=== PATIENT | male | born 1980 | race Caucasian/White ===

== ENCOUNTER 2017-02-03 02:45 | Observation (INO) | payer MEDICARE, OTHER ==
--- NOTE | 2017-02-03 03:32 | ERNOTE ---
Abdominal HPI - General Chief Complaint: Abdominal Pain Time Seen by Provider: 02/03/17 03:19 Source: patient Exam Limitations: no limitations - Immun/Allergies/Home Medications Immunizatons: IMMUNIZATION HX Immunizations Up to Date Yes History of Influenza Vaccine Yes Hx Pneumococcal Vaccination Yes Allergies/Adverse Reactions: Allergies fluoxetine HCl [From Prozac] Allergy (Severe, Verified 02/03/17 10:16) SUICIDAL THOUGHTS tramadol Allergy (Verified 02/03/17 10:16) Suicidal thoughts Home Medications: HOME MEDICATIONS Sertraline HCl [Zoloft] 200 mg PO DAILY #0 tablet 05/30/13 [Last Taken 05/18/14] - History of Present Illness Narrative: Pt states he has been having bloody diarrhea for about a week. This is similar to previous episodes of diverticulitis. 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 Modifying Factors - (Improves): Present: lying down Modifying Factors - (Worsens): Present: eating, movement Review of Systems - Review of Systems Constitutional: Present: recent illness, fever, chills EYE: Present: no symptoms reported ENT: Present: no symptoms reported Respiratory: Absent: shortness of breath, cough Cardiology: Absent: chest pain, palpitations Gastrointestinal/Abdominal: Present: See HPI, nausea, vomiting Genitourinary: Absent: frequency, pain Musculoskeletal: Present: back pain Skin: Present: no symptoms reported Neurological: Present: no symptoms reported Endocrine: Present: excessive sweating, flushing Hematologic/Lymphatic: Present: no symptoms reported Psych: Present: no symptoms reported - Patient's Past Medical History Patient History - Medical: Anxiety, Depression Patient History - Cardiac/Respiratory: No pertinent hx Patient History - Cancer: No Hx of Cancer Patient History - Surgical Procedures: Other Patient History - Other: None - Family History Brother Family History - Medical: History Unknown Family History - Cardiac/Respiratory: History Unknown Family History - Cancer: History Unknown - Social History Living Situations: home Abuse History: Hx of Substance Use Psych History: Hx of Anxiety, Hx of Depression Smoking Status: Never smoker Alcohol Use: none Drug Use: meth - Immunizations Immunizations Up to Date: Yes Hx Pneumococcal Vaccination: Yes History of Influenza Vaccine: Yes Physical Exam - Physical Exam General Appearance: Present: wd/wn, alert, moderate distress Ears, Nose, Throat: Present: normal ENT inspection Neck: Present: normal inspection, nontender, supple Respiratory: Present: no respiratory distress, normal breath sounds, lungs clear Cardiovascular/Chest: Present: regular rate, rhythm, no murmur Gastrointestinal/Abdominal: Present: no organomegaly, tenderness - LUQ, LLQ, guarding Rectal Exam: Present: nontender, normal rectal tone Back Exam: Present: normal inspection, normal range of motion Extremity Exam: Present: normal inspection, normal range of motion, no edema Neurological Exam: Present: alert, oriented Skin Exam: Present: normal color, warm/dry Lymphatic Exam: Present: no adenopathy ED Progress - Results and Orders Patient's Lab Results:: I have reviewed the patient's lab results. Results and Orders: Laboratory Tests 02/03/17 02/03/17 02/03/17 03:10 03:10 03:17 WBC 16.3 H Hgb 16.2 Hct 47.4 Plt Count 243 Neutrophils % 77.8 H Sodium 138 Potassium 3.9 Chloride 98 Carbon Dioxide 33.3 H Anion Gap 10.6 BUN 10 Creatinine 1.17 Est GFR (Non-Af Amer) 75 BUN/Creatinine Ratio 8.5 L Random Glucose 106 Calcium 9.0 Total Bilirubin 0.5 AST 22 ALT 37 Alkaline Phosphatase 97 Total Protein 7.8 Albumin 3.8 Amylase 44 Lipase 59 L Urine Color Dark yellow Urine Appearance Clear Urine pH 6.0 Ur Specific Moore >=1.030 Urine Protein 15 H Urine Glucose (UA) Negative Urine Ketones Negative Urine Blood Negative Urine Nitrate Negative Urine Bilirubin Negative Prot Sulfosalicylic Acd Negative Urine Urobilinogen Normal Ur Leukocyte Esterase Negative Urine RBC 0-5 Urine WBC 0-5 Ur Epithelial Cells 0-5 Amorphous Sediment Moderate - 2+ H Urine Bacteria None seen Urine Culture Comments No culture indicated - Vital Signs Patient's Vital Signs:: I have reviewed the patient's vital signs. Vital Signs: Vital Signs 02/03/17 02:50 Temperature 36.2 C L Pulse Rate 125 H Respiratory 18 Rate Blood Pressure 146/80 O2 Sat by Pulse 96 Oximetry - CT/Ultrasound CT/Ultrasound Narrative: CT abd/pelvis: diverticulitis at juct. of desc and sigmoid colon with adjacent stranding and mild fluid - Progress/Reassessment Chief Complaint: Abdominal Pain Progress:: Unchanged Progress Note-Subjective: 02/03/17 04:37 Pt complains of abdominal pain, pain not controlled by first dose of morphine Departure - Departure Clinical Impression: Diverticula of colon Qualifiers: Diverticulosis bleeding: diverticulosis with bleeding Qualified Code(s): K57.31 - Diverticulosis of large intestine without perforation or abscess with bleeding Disposition: [facility] Condition: Fair
--- OUTSIDE RECORDS SUMMARY | 2017-02-03 03:33 | XMS REPORT | Continuity of Care Document ---
:1980 Author Organization [employer] [place] [address] Care Team Providers Name Role Phone Unavailable Primary Care Provider Unavailable Source Comments This disclosure is being made pursuant to the [employer] program and maynot contain all information available regarding this patient.[employer] Active Allergies and Adverse Reactions Allergen Noted Date Severity Reactions Comments Prozac 02/07/2015 Other (See Comments) Reaction Unknown Tramadol 02/07/2015 Other (See Comments) Reaction Unknown Current Medications Be aware that medications may not be up to date as of this document. Alwaysverify current medications with the patient. Prescription Sig. Disp. Refills Start Date End Date Status sertraline (ZOLOFT) 100 Take 1 tablet by 60 tablet 1 08/08/2015 Active MG tablet mouth 2 (two) times daily. Active Problems Problem Noted Date HTN (hypertension) 01/04/2015 Right shoulder pain 10/25/2014 Joint pain 08/11/2014 Overview: Left Sacroilliac Lumbago 06/05/2014 Social History Tobacco Use Types Packs/Day Years Used Date Never Smoker Alcohol Use Drinks/Week oz/Week Comments No Last Filed Vital Signs Vital Sign Reading Time Taken Blood Pressure 152/85 07/22/2016 6:31 PM [employer] Pulse 110 07/22/2016 6:31 PM [employer] Temperature 36.4 C (97.5 F) 07/22/2016 7:26 PM [employer] Respiratory Rate 18 07/22/2016 6:31 PM [employer] Height 1.829 m (6') 07/22/2016 6:31 PM [employer] Weight 117.028 kg (258 lb) 07/22/2016 6:31 PM [employer] Body Mass Index 34.98 07/22/2016 6:31 PM [employer] Oxygen Saturation 97% 07/22/2016 6:31 PM [employer] Plan of Care Health Maintenance Due Date Last Done Comments Tetanus/Pertussis (1 - Tdap) 1998 Influenza Immunization (#1) 2016 Results from Last 3 Months Not on file Insurance Payer Benefit Plan / Subscriber ID Type Phone Address Group MEDICARE MEDICARE A AND B [id number] [id number] [address] [place] [address] [facility] [id number] Managed [phone] [address] MEDICAID [place], [place] [id number] [id number] BERNARDA WALKER [id number] [address] [place] Personal/Family Self 1980 Home: [address] [place] [address] [phone] BERNARDA WALKER [id number]
[2017-02-03 03:34] LABS: Hematocrit 47.4 % (42.0-52.0); Hemoglobin 16.2 gm/dL (13.5-18.0); Mean Corpuscular Hemoglobin 27.7 pg (27-31); Mean Corpuscular Hgb Conc 34.2 g/dl (32-36); Mean Platelet Volume 10.1 fl (6.0-9.5); Neutrophil # 12.7 K/mm3 (1.3-6.0); Neutrophil % 77.8 % (42-75.0); Platelet Count 243 K/mm3 (150-450); Red Blood Count 5.85 M/mm3 (4.7-6.0); Red Cell Distribution Width 12.8 % (11.5-14.0); White Blood Count 16.3 K/mm3 (4.0-10.5)
[2017-02-03 03:35] LABS: Urine Bilirubin Negative (NEGATIVE); Urine Blood Negative /ul (NEGATIVE); Urine Ketone Negative (NEGATIVE); Urine Nitrite Negative (NEGATIVE); Urine Protein 15 mg/dL (NEGATIVE); Urine Specific Gravity >=1.030 SP.GR. (1.005-1.030); Urine Urobilinogen Normal (NORMAL)
[2017-02-03 03:43] LABS: Urine Amorphous Sediment Moderate - 2+ (NONE-FEW); Urine Appearance Clear; Urine Bacteria None Seen; Urine Color Dark Yellow; Urine RBC 0-5 /hpf (0-5); Urine WBC 0-5 /hpf (0-5)
[2017-02-03 03:46] LABS: Albumin * 3.8 gm/dl (3.4-5.0); Anion Gap 10.6 mmol/L (6.8-13.8); BUN/Creatinine Ratio 8.5 (9.0-21.6); Bilirubin, Total 0.5 mg/dL (0.0-1.1); Ca. Corrected For Albumin 8.8 mg/dL (8.4-10.2); Carbon Dioxide 33.3 mmol/L (24-32.6); Potassium 3.9 mmol/L (3.4-4.6); Total Protein 7.8 gm/dL (6.2-8.2)
[2017-02-03] MEDS ORDERED: ONDANSETRON HCL/PF 2 MG/ML VIAL IV ONE ×2 (03:56→06:48)
[2017-02-03] MEDS ORDERED: MORPHINE SULFATE 2 MG/ML DISP.SYRIN IV ONE ×2 (03:56→04:36)
[2017-02-03] MEDS ORDERED: MORPHINE SULFATE 2 MG/ML DISP.SYRIN ONE (03:57)
[2017-02-03] MEDS ORDERED: ONDANSETRON HCL/PF 2 MG/ML VIAL ONE ×2 (03:58→06:49)
[2017-02-03] MEDS ORDERED: DIATRIZOATE MEGLU/DIATRIZO SOD 30 ML BTL ONE (04:01)
[2017-02-03] MEDS ORDERED: DIATRIZOATE MEGLU/DIATRIZO SOD 30 ML BTL PO ONE (04:02)
[2017-02-03] MEDS ORDERED: MORPHINE SULFATE 4 MG/ML SYRG ONE (04:37)
[2017-02-03] MEDS ORDERED: HYDROmorphone HCL 1 MG/ML DISP.SYRIN ONE ×2 (06:04→06:49)
[2017-02-03] MEDS ORDERED: HYDROmorphone HCL 1 MG/ML DISP.SYRIN IV ONE ×2 (06:07→06:47)
--- OUTSIDE RECORDS SUMMARY | 2017-02-03 06:47 | XMS REPORT | Continuity of Care Document ---
:1980 Author Organization [employer] Address [place] [address] Care Team Providers Name Role Phone Unavailable Primary Care Provider Unavailable Source Comments This disclosure is being made pursuant to the [employer] program and maynot contain all information available regarding this patient.[employer] Active Allergies and Adverse Reactions Allergen Noted [...] Taken Blood Pressure 152/85 07/22/2016 6:31 PM [employer] Pulse 110 07/22/2016 6:31 PM [employer] Temperature 36.4 C (97.5 F) 07/22/2016 7:26 PM [employer] Respiratory Rate 18 07/22/2016 6:31 PM [employer] Height 1.829 m (6') 07/22/2016 6:31 PM [employer] Weight 117.028 kg (258 lb) 07/22/2016 6:31 PM [employer] Body Mass Index 34.98 07/22/2016 6:31 PM [employer] Oxygen Saturation 97% 07/22/2016 6:31 PM [employer] Plan of Care Health Maintenance Due Date Last Done Comments Tetanus/Pertussis (1 - Tdap) 1998 Influenza Immunization (#1) 2016 Results from Last 3 Months Not on file Insurance Payer Benefit Plan / Subscriber ID Type Phone Address Group MEDICARE MEDICARE A AND B [id number] [id number] [address] [place] [address] [facility] [id number] Managed [phone] [address] MEDICAID [place], [place] [id number] [id number] BERNARDA WALKER [id number] [address] Personal/Family Self 1980 Home: [address] [place] [address] [phone] BERNARDA WALKER [id number]
[2017-02-03] MEDS ORDERED: PIPERACILLIN SODIUM/TAZOBACTAM 3.375 GM in DEXTROSE 5 % IN WATER 100 ML IV SCH ×2 (07:00)
[2017-02-03] MEDS ORDERED: oxyCODONE HCL/ACETAMINOPHEN 1 TAB TABLET PO PRN (08:21)
[2017-02-03] MEDS: oxyCODONE HCL/ACETAMINOPHEN 1 TAB TABLET PO PRN ×2 (08:45→14:24)
[2017-02-03] MEDS: CIPROFLOXACIN HCL 500 MG TABLET PO SCH ×2 (08:51→23:32)
[2017-02-03] MEDS: metroNIDAZOLE 500 MG TABLET PO SCH ×3 (08:51→23:34)
[2017-02-03] MEDS: SACCHAROMYCES BOULARDII 250 MG CAPSULE PO SCH ×2 (08:53→23:33)
[2017-02-03] MEDS: PROCHLORPERAZINE EDISYLATE 5 MG/ML VIAL IV PRN ×2 (08:57→21:39)
--- NOTE | 2017-02-03 09:44 | HP ---
Chief Complaint - Chief Complaint Date of Service: 02/03/17 Time of Service: 08:10 Chief Complaint: Abdominal pain and bloody diarrhea History of Present Illness: The patient is a 36-year-old male who presented to the [facility] emergency department with complaints of left lower quadrant abdominal pain and bloody diarrhea for the past week. The patient states that the abdominal pain has continued to progressively get worse over the week. Patient also admits to having subjective fevers and chills. The patient states that his symptoms are the same symptoms he had during prior episodes of diverticulitis. The patient states that he has had approximately 3 episodes of diverticulitis within the past 10 years. The patient states that his last episode of diverticulitis with approximately 3 years ago. The patient states that he has never had a follow- up colonoscopy following his previous episodes of diverticulitis. Despite complaints of bloody diarrhea for the past week, the patient has not had any episodes of diarrhea and has not had any bowel movements since arriving at [facility]. The patient does not currently follow with a primary care physician. The patient states that he has a history of depression and his only current daily medication is Zoloft. The patient will be admitted for observation and pain control. - Patient's Past Medical History Patient History - Medical: Anxiety, Depression Patient History - Cardiac/Respiratory: No pertinent hx Patient History - Cancer: No Hx of Cancer Patient History - Surgical Procedures: Other Patient History - Other: None - Family History Family History:: no familial bleeding tendencies - No family history of IBD - Social History Living Situations: home Abuse History: Hx of Substance Use Psych History: Hx of Anxiety, Hx of Depression Smoking Status: Never smoker Alcohol Use: none Drug Use: meth - Immunizations Immunizations Up to Date: Yes Hx Pneumococcal Vaccination: Yes History of Influenza Vaccine: Yes Review Of Systems (GEN) - Review of Systems Generalized/Overall Review: Present: Weakness, Chills, Fever, Malaise, Diaphoresis, Fatigue EENTM: Present: No Symptoms Reported Respiratory: Present: No Symptoms Reported Cardiac: Present: No Symptoms Reported Abdominal: Present: Nausea, Vomiting, Abdominal Pain, Diarrhea, Bright blood from rectum. Absent: Hematemesis Genitourinary: Present: No Symptoms Reported Musculoskeletal: Present: No Symptoms Reported Neurological: Present: No Symptoms Reported Skin: Present: No Symptoms Reported Endocrine: Present: No Symptoms Reported Misc: All systems neg except as marked Immunizations: IMMUNIZATION HX Immunizations Up to Date Yes History of Influenza Vaccine Yes Hx Pneumococcal Vaccination Yes Allergies/Adverse Reactions: Allergies Allergy/AdvReac Type Severity Reaction Status Date / Time fluoxetine HCl [From Prozac] Allergy Severe SUICIDAL Verified 02/17/16 23:11 THOUGHTS tramadol Allergy Suicidal Verified 02/17/16 23:11 thoughts Home Medications: HOME MEDICATIONS Sertraline HCl [Zoloft] 200 mg PO DAILY #0 tablet 05/30/13 [Last Taken 05/18/14] Exam - Exam Vital Signs: Vital Signs - Last Taken Temp 36.8 C 02/03/17 06:42 Pulse 108 H 02/03/17 06:42 Resp 16 02/03/17 06:42 BP 129/87 02/03/17 06:42 Pulse Ox 95 02/03/17 06:42 Constitutional: Present: Alert, Oriented x3, Cooperative, Well developed, Well nourished, No distress ENT Exam: Present: hearing grossly normal, moist mucous membranes Eye Exam: bilateral eye: normal inspection, EOMI Back Exam: Present: normal inspection, no CVA tenderness Respiratory: Present: lungs clear, normal breath sounds, no respiratory distress , no accessory muscle use Cardiovascular/Chest: Present: normal peripheral pulses, regular rate, rhythm, no edema, no murmur Abdomen: Present: soft, nondistended, tender - Diffuse tenderness to palpation with the most severe area of tenderness being located in the left lower quadrant , guarding - voluntary guarding, rebound tenderness, negative Wei sign. Absent: rigidity, CVA tenderness Diagnostic Studies: Laboratory Results WBC 16.3 K/mm3 (4.0-10.5) H 02/03/17 03:10 RBC 5.85 M/mm3 (4.7-6.0) 02/03/17 03:10 Hgb 16.2 gm/dL (13.5-18.0) 02/03/17 03:10 Hct 47.4 % (42.0-52.0) 02/03/17 03:10 MCV 81.0 fl (78-100) 02/03/17 03:10 MCH 27.7 pg (27-31) 02/03/17 03:10 MCHC 34.2 g/dl (32-36) 02/03/17 03:10 RDW 12.8 % (11.5-14.0) 02/03/17 03:10 Plt Count 243 K/mm3 (150-450) 02/03/17 03:10 MPV 10.1 fl (6.0-9.5) H 02/03/17 03:10 Immature Gran % (Auto) 1.00 % (0.001-0.429) H 02/03/17 03:10 Immature Gran # (Auto) 0.17 K/mm3 (0.000-0.0310) H 02/03/17 03:10 Neutrophils % 77.8 % (42-75.0) H 02/03/17 03:10 Lymphocytes % 13.6 % (20-51) L 02/03/17 03:10 Monocytes % 6.7 % (0.0-9) 02/03/17 03:10 Eosinophils % 0.5 % (0.0-3.0) 02/03/17 03:10 Basophils % 0.4 % (0.0-1.0) 02/03/17 03:10 Nucleated RBC % 0.0 k/mm3 (0-1) 02/03/17 03:10 Neutrophils # 12.7 K/mm3 (1.3-6.0) H 02/03/17 03:10 Lymphocytes # 2.2 k/mm3 (1.5-3.5) 02/03/17 03:10 Monocytes # 1.1 k/mm3 (0.0-1.0) H 02/03/17 03:10 Eosinophils # 0.1 k/mm3 (0.0-0.7) 02/03/17 03:10 Absolute Basophils 0.1 k/mm3 (0.0-0.1) 02/03/17 03:10 Sodium 138 mmol/L (132-142) 02/03/17 03:10 Plasma Sodium 138 mmol/L (130-142) 02/03/17 03:10 Potassium 3.9 mmol/L (3.4-4.6) 02/03/17 03:10 Chloride 98 mmol/L (97-106) 02/03/17 03:10 Carbon Dioxide 33.3 mmol/L (24-32.6) H 02/03/17 03:10 Anion Gap 10.6 mmol/L (6.8-13.8) 02/03/17 03:10 BUN 10 mg/dL (6-23) 02/03/17 03:10 Creatinine 1.17 mg/dL (0.4-1.4) 02/03/17 03:10 Est GFR (Non-Af Amer) 75 mL/min (60-130) 02/03/17 03:10 BUN/Creatinine Ratio 8.5 (9.0-21.6) L 02/03/17 03:10 Random Glucose 106 mg/dL (70-110) 02/03/17 03:10 Calcium 9.0 mg/dL (7.9-10.9) 02/03/17 03:10 Calcium Adj for Albumin 8.8 mg/dL (8.4-10.2) 02/03/17 03:10 Total Bilirubin 0.5 mg/dL (0.0-1.1) 02/03/17 03:10 AST 22 U/L (0-48) 02/03/17 03:10 ALT 37 U/L (19-67) 02/03/17 03:10 Alkaline Phosphatase 97 U/L (50-170) 02/03/17 03:10 Total Protein 7.8 gm/dL (6.2-8.2) 02/03/17 03:10 Albumin 3.8 gm/dl (3.4-5.0) 02/03/17 03:10 Amylase 44 U/L (25-115) 02/03/17 03:10 Lipase 59 U/L (73-393) L 02/03/17 03:10 Urine Color Dark yellow 02/03/17 03:17 Urine Appearance Clear 02/03/17 03:17 Urine pH 6.0 pH (5.0-7.0) 02/03/17 03:17 Ur Specific Stuart >=1.030 SP.GR. (1.005-1.030) 02/03/17 03:17 Urine Protein 15 mg/dL (NEGATIVE) H 02/03/17 03:17 Urine Glucose (UA) Negative mg/dL (NEGATIVE) 02/03/17 03:17 Urine Ketones Negative mg/dL (NEGATIVE) 02/03/17 03:17 Urine Blood Negative /ul (NEGATIVE) 02/03/17 03:17 Urine Nitrate Negative (NEGATIVE) 02/03/17 03:17 Urine Bilirubin Negative mg/dl (NEGATIVE) 02/03/17 03:17 Prot Sulfosalicylic Acd Negative mg/dL (0) 02/03/17 03:17 Urine Urobilinogen Normal EU/dl (NORMAL) 02/03/17 03:17 Ur Leukocyte Esterase Negative /ul (NEGATIVE) 02/03/17 03:17 Urine RBC 0-5 /hpf (0-5) 02/03/17 03:17 Urine WBC 0-5 /hpf (0-5) 02/03/17 03:17 Ur Epithelial Cells 0-5 /hpf (0-5) 02/03/17 03:17 Amorphous Sediment Moderate - 2+ (NONE-FEW) H 02/03/17 03:17 Urine Bacteria None seen (NONE) 02/03/17 03:17 Urine Culture Comments No culture indicated 02/03/17 03:17 Assessment/Plan - Narrative Narrative: IMPRESSION & PLAN: Diverticulitis of the Colon -Admit to Med-Surg, Observation Status -Discontinue IV Zosyn and transition to oral Cipro + Flagyl with plans to continue oral antibiotics for a total of 10-14 days. -Liquid diet as tolerated -Pain control with oral Percocet as first-line and IV Dilaudid for severe pain uncontrolled by oral medications. -Patient will need a colonoscopy approximately 6-8 weeks after resolution of his acute diverticulitis. Patient will be scheduled to see general surgery as an outpatient after discharge. Leukocytosis -Secondary to above. Plan as above. Recheck hemogram in AM. CHRONIC, STABLE MEDICAL CONDITIONS: Depression: Continue home zoloft Disposition: Patient will likely be discharged home in the morning as long as his pain is adequately controlled and his clinical course is otherwise uneventful. - Assessment/Plan (1) Diverticulitis large intestine w/o perforation or abscess w/o bleeding Problem: Acute (2) Leukocytosis Problem: Acute (3) History of diverticulitis of colon Problem: Chronic (4) Depression Problem: Chronic
[2017-02-03] MEDS: SERTRALINE HCL 100 MG TABLET PO SCH (10:02)
[2017-02-03] MEDS: HYDROmorphone HCL 1 MG/ML DISP.SYRIN IV PRN ×3 (17:20→21:42)
[2017-02-04] MEDS: HYDROmorphone HCL 1 MG/ML DISP.SYRIN IV PRN ×2 (02:39→05:09)
[2017-02-04] MEDS: PROCHLORPERAZINE EDISYLATE 5 MG/ML VIAL IV PRN (03:46)
[2017-02-04 05:59] LABS: Hematocrit 47.7 % (42.0-52.0); Hemoglobin 15.7 gm/dL (13.5-18.0); Mean Cell Volume 82.8 fl (78-100); Mean Corpuscular Hemoglobin 27.3 pg (27-31); Mean Corpuscular Hgb Conc 32.9 g/dl (32-36); Mean Platelet Volume 10.5 fl (6.0-9.5); Platelet Count 254 K/mm3 (150-450); Red Blood Count 5.76 M/mm3 (4.7-6.0); Red Cell Distribution Width 12.8 % (11.5-14.0); White Blood Count 13.7 K/mm3 (4.0-10.5)
[2017-02-04 06:36] LABS: Anion Gap 9.4 mmol/L (6.8-13.8); Calcium * 9.3 mg/dL (7.9-10.9); Carbon Dioxide 34.4 mmol/L (24-32.6); Estimated Creat Clear 88.8; Potassium 4.8 mmol/L (3.4-4.6)
[2017-02-04] MEDS: oxyCODONE HCL/ACETAMINOPHEN 1 TAB TABLET PO PRN (07:45)
[2017-02-04 07:59] VITALS: BP 135/80
--- NOTE | 2017-02-04 09:04 | DS ---
(1) Diverticulitis large intestine w/o perforation or abscess w/o bleeding Problem: Acute (2) Leukocytosis Problem: Acute (3) History of diverticulitis of colon Problem: Chronic (4) Depression Problem: Chronic Description of Stay: ADMISSION DATE: 02/03/2017 DISCHARGE DATE: 02/04/2017 ADMISSION HPI: The patient is a 36-year-old male who presented to the [facility] emergency department with complaints of left lower quadrant abdominal pain and bloody diarrhea for the past week. The patient states that the abdominal pain has continued to progressively get worse over the week. Patient also admits to having subjective fevers and chills. The patient states that his symptoms are the same symptoms he had during prior episodes of diverticulitis. The patient states that he has had approximately 3 episodes of diverticulitis within the past 10 years. The patient states that his last episode of diverticulitis with approximately 3 years ago. The patient states that he has never had a follow- up colonoscopy following his previous episodes of diverticulitis. Despite complaints of bloody diarrhea for the past week, the patient has not had any episodes of diarrhea and has not had any bowel movements since arriving at [facility]. The patient does not currently follow with a primary care physician. The patient states that he has a history of depression and his only current daily medication is Zoloft. The patient will be admitted for observation and pain control. PROBLEM BASED HOSPITAL COURSE: Diverticulitis of the Colon -The patient was given a 1 time dose of IV Zosyn by the emergency physician but was transitioned to oral Cipro + Flagyl with plans to continue oral antibiotics for a total of 14 days. -Advance to regular diet as tolerated -Pain control with oral Percocet as first-line and IV Dilaudid for severe pain uncontrolled by oral medications. The patients pain was well-controlled with when necessary Percocet, he was discharged home and instructed to take the Percocet only for severe pain that is uncontrolled by [id number] Tylenol. -Patient will need a colonoscopy approximately 6-8 weeks after resolution of his acute diverticulitis. This was discussed at length with the patient as he has never had a follow-up colonoscopy after his previous episodes of diverticulitis. I would like the patient to see either Dr. Neil or Dr. Wise in 6-8 weeks to discuss/schedule a follow-up colonoscopy after resolution of diverticulitis. Leukocytosis -Secondary to above. Improved on day of discharge. No further monitoring necessary unless issues or concerns arise. CHRONIC, STABLE MEDICAL CONDITIONS: Depression: Continue home zoloft Disposition: The patient had an uneventful hospital stay and was discharged home in stable condition and instructed to take his medications as prescribed and to follow up as recommended. FOLLOW-UP APPOINTMENTS: -PCP within 1-2 weeks -Dr. Neil or Dr. Wise in 6-8 weeks to discuss/schedule a follow-up colonoscopy after resolution of diverticulitis NEW OR CHANGED MEDICATIONS: Ciprofloxacin 500 mg PO BID X 13 days Metronidazole 500 mg PO TID X 13 days Oxycodone-APAP 5-325mg 1 tab PO Q4H PRN severe pain #20 Zofran ODT 4mg PO Q6H PRN N/V #15 DISCONTINUED MEDICATIONS: None RADIOLOGY REPORTS: CT of abdomen and pelvis with oral and IV contrast on 02/03/2017 showed: CT findings suggestive of acute diverticulitis of the descending colon, with trace amount of pericolic gutter fluid without definite signs of perforation or abscess. Procedures Performed: none Discharge Disposition: Home self care Disposition: Home self-care Condition: Stable Discharge Activity: Activity as tolerated Discharge Diet: Other - Advance to regular diet as tolerated Problem Oriented Discharge Instructions to Patient/Family: Diverticulitis, Easy -to-Read Additional Patient Instructions (free text): Follow-up with Dr. Levy February 26, 2:30 pm. Follow-up appointment with Dr. Neil to discuss/schedule a follow-up colonoscopy after resolution of diverticulitis March 9:00 am. Prescriptions (Any new or edited meds): Ciprofloxacin HCl [Cipro] 500 mg PO BID #26 tablet Ondansetron [Zofran Odt] 4 mg PO Q6H PRN #15 tab PRN Reason: Nausea metroNIDAZOLE [Flagyl] 500 mg PO TID #39 tablet oxyCODONE HCL/ACETAMINOPHEN [Percocet 5 MG/325 MG] 1 tab PO Q4H PRN #20 tablet PRN Reason: Severe Pain Complete Home Medications List: Complete Home Medication List: Sertraline HCl [Zoloft] 200 mg PO DAILY #0 tablet 05/30/13 Ciprofloxacin HCl [Cipro] 500 mg PO BID #26 tablet 02/04/17 Ondansetron [Zofran Odt] 4 mg PO Q6H PRN #15 tab 02/04/17 metroNIDAZOLE [Flagyl] 500 mg PO TID #39 tablet 02/04/17 oxyCODONE HCL/ACETAMINOPHEN [Percocet 5 MG/325 MG] 1 tab PO Q4H PRN #20 tablet 02/04/17
[2017-02-04] MEDS: metroNIDAZOLE 500 MG TABLET PO SCH (09:20)
[2017-02-04] MEDS: SERTRALINE HCL 100 MG TABLET PO SCH (09:20)
[2017-02-04] MEDS: SACCHAROMYCES BOULARDII 250 MG CAPSULE PO SCH (09:20)
[2017-02-04] MEDS: CIPROFLOXACIN HCL 500 MG TABLET PO SCH (09:20)
== END 2017-02-04 11:00 | disposition home or self-care (01) ==
LOC: ER 02:45 → MS 06:43 → INTOOBSV 06:43
PROVIDERS: ADMIT Nurse Practitioner Critical Care Medicine; ATTEND Internal Medicine
DX: K57.32 Diverticulitis of large intestine without perforation or abscess without bleeding (principal); D72.829 Elevated white blood cell count, unspecified
CPT/HCPCS: 36415; 74177; 80048; 80053; 81001; 82150; 83690; 85025; 85027; 87081; 96365; 96366; 96374; 96375; 96376; 99284; G0378; J2405

== ENCOUNTER 2017-06-23 06:49 | Emergency (ER) | payer MEDICARE ==
[2017-06-23] MEDS ORDERED: METHYLPREDNISOLONE ACETATE 80 MG/ML VIAL IM ONE (07:28)
[2017-06-23] MEDS ORDERED: DEXAMETHASONE SOD PHOSPHATE 10 MG/ML VIAL IM ONE (07:28)
[2017-06-23] MEDS ORDERED: KETOROLAC TROMETHAMINE 60 MG/2 ML VIAL IM ONE ×2 (07:28→07:32)
[2017-06-23] MEDS ORDERED: DEXAMETHASONE SOD PHOSPHATE 10 MG/ML VIAL ONE (07:32)
[2017-06-23] MEDS ORDERED: METHYLPREDNISOLONE ACETATE 80 MG/ML VIAL ONE (07:32)
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
[2017-06-23 07:45] VITALS: BP 136/84
== END 2017-06-23 08:07 | disposition home or self-care (01) ==
LOC: ER 06:49
DX: M50.820 Other cervical disc disorders, mid-cervical region, unspecified level (principal)